=== PATIENT | male | born 1985 | race Caucasian/White ===

== ENCOUNTER 2020-07-22 19:10 | Emergency (ER) | payer SELFPAY ==
[2020-07-22 19:17] VITALS: BP 165/64; PULSE 108; RESP 12; TEMP 37.1; O2SAT 99
[2020-07-22 19:30] LABS: Basophils Percent Auto 0.3 % (0.2-1.2); Eosinophils Absolute Auto 0.1 K/mm3 (0-0.3); Eosinophils Percent Auto 0.6 % (0-4.4); Hematocrit 46.4 % (42.0-52.0); Hemoglobin 15.5 g/dL (14.0-18.0); Immature Granulocyte Absolute 0.06 K/mm3 (0.00-0.031); Immature Granulocyte Percent A 0.4 % (0-0.5); Lymphocytes Absolute Auto 1.42 K/mm3 (0.9-3.2); Lymphocytes Percent Auto 9.3 % (18.3-44.2); Mean Corpuscular HGB Conc 33.4 g/dl (32-36); Mean Corpuscular Hemoglobin 30.2 pg (26-34); Mean Corpuscular Volume 90.3 fl (80-100); Mean Platelet Volume 10.7 fl (7.4-10.4); Monocytes Absolute Auto 1.5 K/mm3 (0.1-0.6); Monocytes Percent Auto 9.7 % (2.6-8.5); Neutrophils Absolute Auto 12.2 K/mm3 (1.3-6.7); Neutrophils Percent Auto 79.7 % (45.5-73.1); Platelet Count Result 217 k/mm3 (150-375); Red Blood Count 5.14 M/mm3 (4.6-6.20); White Blood Count 15.3 K/mm3 (4.5-10.0)
[2020-07-22 19:39] LABS: Alanine Aminotransferase 22 U/L (4-50); Albumin Level 4.5 g/dL (3.5-5.1); Alkaline Phosphatase 162 U/L (38-126); Anion Gap 7 mmol/L (8-16); Aspartate Amino Transferase 31 U/L (17-59); Bilirubin,Total 0.8 mg/dL (0.2-1.3); Blood Urea Nitrogen 11 mg/dL (9-20); Calcium 9.4 mg/dL (8.4-10.2); Carbon Dioxide 24 mmol/L (22-30); Chloride 107 mmol/L (98-107); Estimated CRCL calculation 84 ml/min; Estimated Glomerular Filt Rate > 60; Glucose 111 mg/dL (75-110); Lipase 32 U/L (23-300); Potassium 3.8 mmol/L (3.4-5.0); Sodium 138 mmol/L (137-145)
[2020-07-22 19:48] LABS: Add Urine Microscopic? YES; Appearance Urine Clear (Clear); Bilirubin Urine Negative (Negative); Blood Urine Negative (Negative); Color Urine Yellow (Yellow); Glucose Urine UA Negative (Negative); Ketones Urine Negative (Negative); Leukocyte Esterase Ur Negative LEU/UL (Negative); Mucus Urine Rare /lpf; Nitrate Urine Negative (Negative); Protein Urine 1+ mg/dL (Negative); Specific Grav Ur 1.027 (1.001-1.035); Urobilinogen Urine Negative mg/dL (<2.0); WBC Urine 0-3 /hpf
--- NOTE | 2020-07-22 22:42 | PC.NURSE ---
2232 no answer when called
--- NOTE | 2020-07-22 22:43 | PC.NURSE ---
2240 no answer when called
== END 2020-07-22 22:40 | disposition left against medical advice (07) ==
PROVIDERS: Emergency Provider Emergency Medicine
DX: R10.9 Unspecified abdominal pain (principal)
CPT/HCPCS: 36415; 80053; 81001; 83690; 85025; 99199

== ENCOUNTER 2020-07-24 07:31 | Emergency (ER) | payer SELFPAY ==
--- NOTE | ~2020-07-24 | CT_ITS ---
EXAMINATION: CT abdomen pelvis wo con DATE: 07/24/2020 08:23 INDICATION: Left abdominal and flank pain TECHNIQUE: Computed tomography (CT) of the abdomen and pelvis was performed without intravenous contr ast. Automated exposure control and iterative reconstruction technique were employed. Exam dose: 658 .26 mGy-cm total exam DLP. COMPARISON: 07/24/2020 [facility] FINDINGS: The lung bases are clear of infiltrate or consolidation. Normal heart size. No pericardial or pleural effusion. The liver, gallbladder, bile ducts, spleen, pancreas, pancreatic duct and adrenal glands are unremark able. 4 mm nonobstructing right renal calculus. 6 mm and 4.5 mm nonobstructing left renal calculi. Approximately 3.6 mm radiographically detectable distal left ureteral calculus with mild associated l eft hydroureteronephrosis. The urinary bladder, prostate gland and seminal vesicles are unremarkable. Normal caliber of the abdominal aorta. No intraperitoneal or retroperitoneal or pelvic mass lesion or adenopathy or ascites. Normal appendix. No bowel obstruction, bowel wall thickening, pneumatosis or intraperitoneal free air . Small fat-containing umbilical hernia. 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 Differential diagnosis includes aneurysmal bone cyst, eosinophilic granuloma, enchondroma, chondroblastoma, chondromyxoid fibroma, giant cell tumor. Malignant bone tumor or metast asis is much less likely. IMPRESSION: 3.6 mm distal left ureteral calculus with mild associated left hydroureteronephrosis Bilateral nonobstructive nephrolithiasis Expansile large soft tissue mass in the right 11th rib; differential diagnosis is given above Reviewed, dictated and finalized at [facility] Reviewed, dictated and finalized at [facility] IMPRESSION: 3.6 mm distal left ureteral calculus with mild associated left hyd roureteronephrosis Bilateral nonobstructive nephrolithiasis Expansile large soft tissue mass in the right 11th rib; differential diagnosis is given above
--- NOTE | ~2020-07-24 | XR_ITS ---
XR abdomen/kub 1V DATE: 07/24/2020 08:38 INDICATION: Left flank pain TECHNIQUE: AP projection, 2 views COMPARISON: None FINDINGS: Large expansile lesion of right 11th rib. Differential diagnosis includes fibrous dysplasia , aneurysmal cyst, as well as enchondroma, chondroblastoma, chondromyxoid fibroma, giant cell tumor, much less likely malignant or metastatic lesion. Several millimeter lower pole right renal calculus. Mid to upper several millimeter left renal calculus. Several millimeter mid to lower left renal calcu quan. Approximately 3.5 mm distal left ureteral calcified calculus. The psoas shadows are intact. No visceromegaly is evident. There is no evidence of bowel obstruction. IMPRESSION: Bilateral nephrolithiasis Approximately 3.5 mm distal left ureteral calcified calculus Large expansile lucent lesion of right 11th rib; differential diagnosis given above Reviewed, dictated and finalized at [facility] Reviewed, dictated and finalized at [facility] IMPRESSION: Bilateral nephrolithiasis Approximately 3.5 mm distal left ureteral calcified calculus Large expansile lucent lesion of right 11th rib; differential diagnosis given a darcie
[2020-07-24 07:33] VITALS: BP 152/80; PULSE 110; RESP 20; TEMP 36.7; O2SAT 99
--- NOTE | 2020-07-24 07:41 | ED.GENADULT ---
HPI - General Adult General Chief complaint: Abdominal Pain Stated complaint: BACK AND ABD PAIN Time Seen by Provider: 07/24/20 07:36 Source: RN notes reviewed History of Present Illness HPI narrative: Patient presents to emergency department from home for flank pain. Patient states symptoms began 3 days ago with pain in his left flank that radiates around the left side of his abdomen described as aching in nature. States he has associated nausea vomiting x1 3 days ago but none since. Denies any fevers or chills chest pain, shortness of breath, diarrhea or any other symptoms. States he took ibuprofen this morning with some relief of the pain denies any other symptoms at this time Related Data Allergies Allergy/AdvReac Type Severity Reaction Status Date / Time No Known Allergies Allergy Verified 07/24/20 07:34 Review of Systems Review of Systems: Narrative: Gen.: Denies fevers or chills ENT: Denies congestion Respiratory: Denies shortness of breath or cough CV: Denies chest pain or palpitations GI: See HPI denies burning, urgency, frequency or hematuria Musculoskeletal: Denies back pain or muscle pain Neuro: Denies numbness, tingling, weakness or focal weakness Skin: Denies rash Except as documented, all other systems reviewed and negative PMFSH Past Medical History Medical History (Updated 07/24/20 @ 10:32 by Dano Zazueta DO) Patient denies significant medical history Social History Social History (Updated 07/24/20 @ 07:42 by Dano Zazueta DO) Smoking status: Current every day smoker Gender identity (if verbalized by the patient): Male Exam Narrative: Exam Narrative: APPEARANCE: No acute distress, nontoxic, resting in bed HEENT: Normocephalic, atraumatic, OMM RESPIRATORY: No respiratory distress, clear to auscultation bilaterally with no rhonchi wheezing or rales CARDIOVASCULAR: RRR s murmur ABDOMINAL: Soft nondistended tender palpation left lower quadrant left lower quadrant no tenderness right of quadrant lower quadrant no rebound or guarding MUSCULOSKELETAl: Moves all extremities. No clubbing, cyanosis or edema. NEURO: Awake and alert. Following commands, speech normal, no focal deficits SKIN:: Warm, dry. Normal Color PSYCHIATRIC: Normal affect/mood Course Course Emergency Course: Discussed with Dr. Guo presentation work-up agrees with plan for discharge to follow-up as an outpatient Discussed with patient results of workup and diagnosis. Discussed need for follow-up with primary care, proper use of medication, and reasons to return to the emergency department. Patient understands and agrees to current treatment plan I did discuss with the patient the rib irregularity seen on x-ray and need for follow-up and will refer to PCP Vital Signs Vital signs: Vital Signs Temperature 98.0 F 07/24/20 07:33 Pulse Rate 110 H 07/24/20 07:33 Respiratory Rate 20 07/24/20 07:33 Blood Pressure 152/80 H 07/24/20 07:33 Pulse Oximetry 99 07/24/20 07:33 Temperature 98.0 F 07/24/20 07:33 Pulse Rate 110 H 07/24/20 07:33 Respiratory Rate 20 07/24/20 07:33 Blood Pressure 152/80 H 07/24/20 07:33 Pulse Oximetry 99 07/24/20 07:33 Medical Decision Making Vital Signs Vital Signs: Vital Signs Temperature 98.0 F 07/24/20 07:33 Pulse Rate 110 H 07/24/20 07:33 Respiratory Rate 20 07/24/20 07:33 Blood Pressure 152/80 H 07/24/20 07:33 Pulse Oximetry 99 07/24/20 07:33 Temperature 98.0 F 07/24/20 07:33 Pulse Rate 110 H 07/24/20 07:33 Respiratory Rate 20 07/24/20 07:33 Blood Pressure 152/80 H 07/24/20 07:33 Pulse Oximetry 99 07/24/20 07:33 Lab Data Result diagrams: 07/24/20 07:48 07/24/20 07:47 Labs: Lab Results 07/24/20 07/24/20 07/24/20 Range/Units 07:46 07:47 07:48 WBC 15.8 H (4.5-10.0) K/mm3 RBC 4.91 (4.6-6.20) M/mm3 Hgb 15.1 (14.0-18.0) g/dL Hct 45.1 (42.0-52.0) % MCV 91.9
[2020-07-24] MEDS: SODIUM CHLORIDE 0.9% IV 1,000 ML 999 ML IV CONT (07:54)
[2020-07-24 08:10] LABS: Anion Gap 8 mmol/L (8-16); Blood Urea Nitrogen 15 mg/dL (9-20); Calcium 9.5 mg/dL (8.4-10.2); Carbon Dioxide 26 mmol/L (22-30); Chloride 104 mmol/L (98-107); Estimated CRCL calculation 73 ml/min; Estimated Glomerular Filt Rate 54; Glucose 105 mg/dL (75-110); Potassium 3.7 mmol/L (3.4-5.0); Sodium 138 mmol/L (137-145)
[2020-07-24 08:10] LABS: Basophils Percent Auto 0.2 % (0.2-1.2); Eosinophils Absolute Auto 0.2 K/mm3 (0-0.3); Eosinophils Percent Auto 1.5 % (0-4.4); Hematocrit 45.1 % (42.0-52.0); Hemoglobin 15.1 g/dL (14.0-18.0); Immature Granulocyte Absolute 0.06 K/mm3 (0.00-0.031); Immature Granulocyte Percent A 0.4 % (0-0.5); Lymphocytes Absolute Auto 1.56 K/mm3 (0.9-3.2); Lymphocytes Percent Auto 9.9 % (18.3-44.2); Mean Corpuscular HGB Conc 33.5 g/dl (32-36); Mean Corpuscular Hemoglobin 30.8 pg (26-34); Mean Corpuscular Volume 91.9 fl (80-100); Mean Platelet Volume 11.4 fl (7.4-10.4); Monocytes Absolute Auto 1.8 K/mm3 (0.1-0.6); Monocytes Percent Auto 11.3 % (2.6-8.5); Neutrophils Absolute Auto 12.1 K/mm3 (1.3-6.7); Neutrophils Percent Auto 76.7 % (45.5-73.1); Platelet Count Result 216 k/mm3 (150-375); Red Blood Count 4.91 M/mm3 (4.6-6.20); White Blood Count 15.8 K/mm3 (4.5-10.0)
[2020-07-24 08:17] LABS: Add Urine Microscopic? YES; Appearance Urine Clear (Clear); Bilirubin Urine Negative (Negative); Blood Urine Negative (Negative); Color Urine Amber (Yellow); Glucose Urine UA Negative (Negative); Ketones Urine Negative (Negative); Leukocyte Esterase Ur Negative LEU/UL (Negative); Mucus Urine Few /lpf; Nitrate Urine Negative (Negative); Protein Urine 1+ mg/dL (Negative)
[2020-07-24 08:21] LABS: Specific Grav Ur 1.038 (1.001-1.035)
[2020-07-24 08:25] LABS: Alanine Aminotransferase 19 U/L (4-50); Albumin Level 4.5 g/dL (3.5-5.1); Alkaline Phosphatase 152 U/L (38-126); Aspartate Amino Transferase 25 U/L (17-59); Bilirubin,Total 1.3 mg/dL (0.2-1.3); Lipase 28 U/L (23-300)
[2020-07-24 09:13] LABS: Lactic Acid Reflex 0.9 mmol/L (0.7-2.1)
[2020-07-24] MEDS: TAMSULOSIN HCL 0.4 MG CAPSULE PO (10:24)
[2020-07-24 10:46] VITALS: BP 150/85; PULSE 91; RESP 18; O2SAT 100
== END 2020-07-24 10:48 | disposition home or self-care (01) ==
PROVIDERS: Emergency Provider Emergency Medicine
DX: N13.2 Hydronephrosis with renal and ureteral calculous obstruction (principal); F17.200 Nicotine dependence, unspecified, uncomplicated
CPT/HCPCS: 36415; 74018; 74176; 80048; 80076; 81001; 83605; 83690; 85025; 96360; 99284; A9270; J7030